=== PATIENT | female | born 1945 | race Caucasian/White ===

== ENCOUNTER 2017-02-20 09:43 | Emergency (ER) | payer MEDICAID, MEDICARE, OTHER ==
--- NOTE | 2017-02-20 11:18 | UC ---
Throat Pain/Nasal Arjun HPI - HPI Summary HPI Summary: complaint of nasal congestion and cough that strated approx 10 days ago producitve cough pressure in her face for the last 3 days intermittent headaches bilateral ear pain sore throat denies fever but has felt chills taking some ibuprofen with relief - History of Current Complaint Chief Complaint: UCRespiratory Stated Complaint: URI Time Seen by Provider: 02/20/17 11:10 Hx Obtained From: Patient - Allergies/Home Medications Allergies/Adverse Reactions: Allergies Allergy/AdvReac Type Severity Reaction Status Date / Time No Known Allergies Allergy Verified 10/07/15 13:21 PMH/Surg Hx/FS Hx/Imm Hx Previously Healthy: Yes Endocrine History Of: Reports: Thyroid Disease - HYPOTHYROID Denies: Diabetes Cardiovascular History Of: Reports: Hypertension Denies: Cardiac Disorders Respiratory History Of: Denies: COPD, Asthma GI/ History Of: Denies: Ulcer Psychological History Of: Reports: Anxiety - ON MEDICATION FOR, Depression - ON MEDICATION FOR - Surgical History Surgical History: Yes Surgery Procedure, Year, and Place: CATARACT RIGHT EYE REMOVED. TUBAL LIGATION. RIGHT EYE SURGERY FOR GLAUCOMA left eye glaucoma - Family History Known Family History: Negative: Cardiac Disease, Hypertension, Diabetes - Social History Occupation: Employed Full-time Lives: With Family Alcohol Use: None Substance Use Type: None Smoking Status (MU): Former Smoker Amount Used/How Often: 1 PPD X 46 YEARS When Did the Patient Quit Smoking/Using Tobacco: 4 YEARS Review of Systems Constitutional: Chills Skin: Negative Eyes: Negative ENT: Sore Throat, Ear Ache, Nasal Discharge Respiratory: Cough Cardiovascular: Negative Gastrointestinal: Negative Genitourinary: Negative Motor: Negative Neurovascular: Negative Musculoskeletal: Negative Neurological: Headache Psychological: Negative All Other Systems Reviewed And Are Negative: Yes Physical Exam Triage Information Reviewed: Yes Appearance: No Pain Distress, Well-Nourished Vital Signs: Initial Vital Signs Temp 98 F 02/20/17 10:02 Pulse 99 02/20/17 10:02 Resp 18 02/20/17 10:02 Pulse Ox 97 02/20/17 10:02 Vital Signs Reviewed: Yes Eyes: Positive: Conjunctiva Clear ENT: Positive: Pharyngeal erythema, Nasal congestion, Nasal drainage, TMs normal , Other: - frontal and maxillary sinus tenderness Neck: Positive: No Lymphadenopathy Respiratory: Positive: Lungs clear, Normal breath sounds, No respiratory distress, No accessory muscle use Cardiovascular: Positive: RRR, No Murmur Abdomen Description: Positive: Nontender, Soft Bowel Sounds: Positive: Present Musculoskeletal: Positive: No Edema Neurological: Positive: Alert Psychological Exam: Normal Skin Exam: Normal Throat Pain/Nasal Course/Dx - Course Course Of Treatment: exam completed. will treat for sinsuitis d/t sinus tendeness ans length of illness. followup with PCP - Differential Dx/Diagnosis Provider Diagnoses: sinusitis Discharge - Discharge Plan Condition: Stable Disposition: HOME Prescriptions: Amoxicillin/Clavulanate TAB* [Augmentin TAB 875*] 875 mg PO BID #20 tab Benzonatate CAP* [Tessalon 100 MG CAP*] 100 mg PO TID PRN #30 cap PRN Reason: Cough Patient Education Materials: Sinusitis (ED) Referrals: Emerson Perales MD [Primary Care Provider] - Additional Instructions: SINUSITIS What is Sinusitis? Sinusitis is inflammation or infection of the lining of the sinuses behind the bones in your cheeks or forehead. Sinusitis may occur following a common cold, flu, or other infection; allergies; a tooth infection that spreads to the sinuses; swimming in contaminated water; pressure changes in airplanes at high altitudes; violent sneezing or nose blowing or smoking or breathing other peoples smoke. Symptoms Might Include: Nasal Congestion Sneezing Watery eyes, eye irritation, or eye itching Headaches Pressure in the cheeks Wheezing Trouble smelling Sore throat and coughing may occur Treatment Recommendations: Take medicines as prescribed until completely gone. Drink plenty of fluids. Use saline nose spray to thin the mucous and help the sinuses drain. Use a vaporizer or humidifier. Apply warm compresses to the face or forehead several times a day for 10 to 20 minutes. Call Your Doctor or Return Here IF: Your pain increases during treatment. You develop a high temperature. You develop unusual swelling around the eyes. You have difficulty with your vision. You develop a severe headache, earache, or toothache. You develop increased fever or fever that does not respond to medication such as Tylenol?. You have difficulty breathing or catching your breath. You begin to have any other new symptoms that worry you.
== END 2017-02-20 11:31 | disposition home or self-care (01) ==
LOC: UCEAST 09:43
DX: J32.9 Chronic sinusitis, unspecified (principal); E03.9 Hypothyroidism, unspecified; I10 Essential (primary) hypertension; F41.9 Anxiety disorder, unspecified; F32.9 Major depressive disorder, single episode, unspecified; Z98.41 Cataract extraction status, right eye; Z87.891 Personal history of nicotine dependence
CPT/HCPCS: 99211; G0463

== ENCOUNTER 2017-08-12 12:04 | Emergency (ER) | payer OTHER, MEDICAID ==
[2017-08-12 12:23] VITALS: BP 145/62
[2017-08-12] MEDS ORDERED: Meclizine TAB* 12.5 MG PO ONE ×2 (12:43→13:31)
--- NOTE | 2017-08-12 12:49 | UC ---
Respiratory Complaint HPI - History of Current Complaint Chief Complaint: UCBackPain Stated Complaint: BACK PAIN Hx Obtained From: Patient - prob 1: thought she had allergies, nasal congestion , but worse over past 2 days and now felling dizzy when moves her head too fast Prob: 2: awoke with R sided back pain (T11-L4 area), worse if bends forward. has had back pain in past and this is similar. has not taken meds for this Onset/Duration: Gradual Onset Timing: Constant Severity Initially: Mild Severity Currently: Moderate Aggravating Factors: Other - dizziness: movement Back: bending forward Alleviating Factors: Nothing Associated Signs And Symptoms: Positive: Negative - Allergies/Home Medications Allergies/Adverse Reactions: Allergies Allergy/AdvReac Type Severity Reaction Status Date / Time No Known Allergies Allergy Verified 08/12/17 12:22 PMH/Surg Hx/FS Hx/Imm Hx Previously Healthy: Yes Endocrine History: Thyroid Disease, Dyslipidemia Cardiovascular History: Hypertension Psychological History: Depression - Surgical History Surgical History: Yes Surgery Procedure, Year, and Place: CATARACT RIGHT EYE REMOVED. TUBAL LIGATION. RIGHT EYE SURGERY FOR GLAUCOMA left eye glaucoma - Family History Known Family History: Negative: Cardiac Disease, Hypertension, Diabetes - Social History Occupation: Retired Lives: With Family Alcohol Use: None Substance Use Type: None Smoking Status (MU): Former Smoker Amount Used/How Often: 1 PPD X 46 YEARS When Did the Patient Quit Smoking/Using Tobacco: 4 YEARS Review of Systems Constitutional: Negative Skin: Negative ENT: Nasal Discharge Respiratory: Negative Cardiovascular: Negative Genitourinary: Negative Neurological: Other - dizzy Psychological: Negative All Other Systems Reviewed And Are Negative: Yes Physical Exam Triage Information Reviewed: Yes Appearance: Well-Appearing, No Pain Distress, Well-Nourished Vital Signs: Initial Vital Signs Temp 99.3 F 08/12/17 12:17 Pulse 110 08/12/17 12:17 Resp 18 08/12/17 12:17 BP 145/62 08/12/17 12:17 Pulse Ox 97 08/12/17 12:17 Vital Signs Reviewed: Yes Eyes: Positive: Conjunctiva Clear ENT: Positive: Pharynx normal, Nasal congestion, TMs normal. Negative: Sinus tenderness Neck: Positive: No Lymphadenopathy Respiratory Exam: Normal Respiratory: Positive: Lungs clear Cardiovascular Exam: Normal Cardiovascular: Positive: RRR, Brisk Capillary Refill Musculoskeletal: Positive: Strength Intact, ROM Intact, Other: - R low back pain with full flexion Psychological Exam: Normal Skin: Negative: rashes UC Diagnostic Evaluation - Laboratory O2 Sat by Pulse Oximetry: 97 Re-Evaluation - Re-Evaluation First Eval Change: Improved - pt states dizziness is "a lot improved" at this itme no change back pain Respiratory Course/Dx - Differential Dx/Diagnosis Differential Diagnosis/HQI/PQRI: Influenza, Lower Resp Infection, Sinusitis, Other - labyrnthitis, shingles, Provider Diagnoses: labyrinthitis. low back strain Discharge - Discharge Plan Condition: Stable Disposition: HOME Patient Education Materials: Labyrinthitis (ED), Low Back Strain (ED) Referrals: Emerson Perales MD [Medical Doctor] - Additional Instructions: drink plenty of fluids use medication as directed Report to ER if your symptoms worsen at any time
[2017-08-12] MEDS ORDERED: Ibuprofen TAB* 600 MG PO ONE (13:32)
== END 2017-08-12 13:51 | disposition home or self-care (01) ==
LOC: UCEAST 12:04
DX: Z87.891 Personal history of nicotine dependence (principal); H83.09 Labyrinthitis, unspecified ear; S39.012A Strain of muscle, fascia and tendon of lower back, initial encounter; X58.XXXD Exposure to other specified factors, subsequent encounter; Y92.9 Unspecified place or not applicable
CPT/HCPCS: 99212; A9270-GY; G0463

== ENCOUNTER 2017-09-05 16:42 | Emergency (ER) | payer OTHER, MEDICAID ==
[2017-09-05 17:07] VITALS: BP 152/61
--- NOTE | 2017-09-05 17:19 | UC ---
Respiratory Complaint HPI - HPI Summary HPI Summary: Pt presents with sinus symptoms and cough. She tells me that for the past week she has had sinus congestion/pain/pressure with post nasal drip. Over the last 3 days she developed a productive cough yielding yellow and green sputum. She has been taking an OTC cold and flu medication without relief. Denies fever, chills, SOB, chest pain, abdominal pain, N/V/D/C. - History of Current Complaint Chief Complaint: UCRespiratory Stated Complaint: URI Time Seen by Provider: 09/05/17 17:18 Hx Obtained From: Patient Onset/Duration: Gradual Onset Timing: Constant Severity Initially: Mild Severity Currently: Moderate Character: Cough: Productive - Allergies/Home Medications Allergies/Adverse Reactions: Allergies Allergy/AdvReac Type Severity Reaction Status Date / Time No Known Allergies Allergy Verified 08/12/17 12:22 PMH/Surg Hx/FS Hx/Imm Hx Endocrine History: Hypothyroidism, Dyslipidemia Cardiovascular History: Hypertension Psychological History: Anxiety, Depression - Surgical History Surgical History: Yes Surgery Procedure, Year, and Place: CATARACT RIGHT EYE REMOVED. TUBAL LIGATION. RIGHT EYE SURGERY FOR GLAUCOMA left eye glaucoma - Family History Known Family History: Negative: Cardiac Disease, Hypertension, Diabetes - Social History Occupation: Retired Lives: With Family Alcohol Use: None Substance Use Type: None Smoking Status (MU): Former Smoker Amount Used/How Often: 1 PPD X 46 YEARS When Did the Patient Quit Smoking/Using Tobacco: 4 YEARS Review of Systems Constitutional: Negative Skin: Negative Eyes: Negative ENT: Nasal Discharge, Sinus Congestion, Sinus Pain/Tenderness Respiratory: Cough Cardiovascular: Negative Gastrointestinal: Negative Musculoskeletal: Negative Neurological: Negative Psychological: Negative All Other Systems Reviewed And Are Negative: Yes Physical Exam Triage Information Reviewed: Yes Appearance: Well-Appearing, Well-Nourished Vital Signs: Initial Vital Signs Temp 98.5 F 09/05/17 17:04 Pulse 111 09/05/17 17:04 Resp 18 09/05/17 17:04 BP 152/61 09/05/17 17:04 Pulse Ox 98 09/05/17 17:04 Vital Signs Reviewed: Yes Eyes: Positive: Conjunctiva Clear. Negative: Conjunctiva Inflamed, Discharge ENT: Positive: Hearing grossly normal, Pharynx normal, Nasal congestion, Nasal drainage, TMs normal, Sinus tenderness, Uvula midline. Negative: Pharyngeal erythema, TM bulging, TM dull, TM red, Tonsillar swelling, Tonsillar exudate Neck: Positive: Supple, Nontender, No Lymphadenopathy Respiratory: Positive: Chest non-tender, No respiratory distress, No accessory muscle use, Wheezing - Throughout, Plerual rub - on expiration right lung Cardiovascular: Positive: RRR, No Murmur, Pulses Normal Neurological: Positive: Alert Psychological: Positive: Age Appropriate Behavior Skin: Negative: rashes UC Diagnostic Evaluation - Laboratory O2 Sat by Pulse Oximetry: 98 Respiratory Course/Dx - Course Course Of Treatment: CXR: 1 NO EVIDENCE FOR ACUTE FINDING. 2. HIATAL HERNIA. I discussed with the patient that a nebulizer treatment with Duoneb would likely improve her symptoms in the short term. She declined as she wanted to go home. Will rx for Augmentin for sinusitis and albuterol for bronchitis. - Differential Dx/Diagnosis Differential Diagnosis/HQI/PQRI: Asthma, Bronchitis, Exacerbation Of COPD, Influenza, Lower Resp Infection, Sinusitis Provider Diagnoses: Sinusitis. Bronchitis Discharge - Discharge Plan Condition: Stable Disposition: HOME Prescriptions: Albuterol HFA INHALER* [Ventolin HFA Inhaler*] 2 puff INH Q6H PRN #1 mdi PRN Reason: Sob/Wheezing Amoxicillin/Clavulanate TAB* [Augmentin TAB 875*] 875 mg PO BID #20 tab Patient Education Materials: Sinusitis (ED), Acute Bronchitis (ED) Referrals: Maya Beltrán MD [Primary Care Provider] - Additional Instructions: If you develop a fever, SOB, chest pain, new or worsening symptoms - please call your PCP or go to the ED. Your blood pressure was high at todays visit. Please see your primary provider within 4 weeks for recheck and re-evaluation. 1) Try OTC plain mucinex twice a day and continue taking tylenol for any fevers or discomfort.
--- NOTE | 2017-09-05 17:51 | RAD ---
INDICATION: Cough. COMPARISON: Comparison is made with prior chest x-ray study from October 12, 2007. TECHNIQUE: Dual-energy PA and lateral views of the chest were obtained. FINDINGS: The heart is within normal limits in size. There appears to be a moderate-sized hiatal hernia present. The lungs are slightly hyperinflated and clear. No pleural effusion is seen. IMPRESSION: 1 NO EVIDENCE FOR ACUTE FINDING. 2. HIATAL HERNIA.
== END 2017-09-05 18:15 | disposition home or self-care (01) ==
LOC: UCEAST 16:42
DX: J32.9 Chronic sinusitis, unspecified (principal); J40 Bronchitis, not specified as acute or chronic; K44.9 Diaphragmatic hernia without obstruction or gangrene; I10 Essential (primary) hypertension; Z87.891 Personal history of nicotine dependence
CPT/HCPCS: 71020; 99212; G0463

== ENCOUNTER 2017-11-11 08:14 | Emergency (ER) | payer OTHER, MEDICAID ==
[2017-11-11 08:42] VITALS: BP 141/60
--- NOTE | 2017-11-11 09:04 | UC ---
Respiratory Complaint HPI - HPI Summary HPI Summary: Patient presents with a past medical history of HTN, Hypercholesterolemia. She reports 2-3 day onset fatigue, malaise, generalzied body aches. She also reports chest congestion, productive cough, and discomfort in her chest only when she is coughing. She states she lives with her sister who has pneumonia. - History of Current Complaint Chief Complaint: UCRespiratory Stated Complaint: CHEST CONGESTION Time Seen by Provider: 11/11/17 08:43 Hx Obtained From: Patient ?: No Onset/Duration: Gradual Onset, Lasting Days Timing: Constant Pain Intensity: 3 Character: Cough: Productive Aggravating Factors: Deep Breaths, Recumbent Position Alleviating Factors: Upright Position, Spontaneous Resolution Associated Signs And Symptoms: Positive: Wheezing, URI, Nasal Congestion, Sinus Discomfort - Risk Factors Pulmonary Embolism Risk Factors: Negative Cardiac Risk Factors: Hypertension, Elevated Lipids Pseudomonas Risk Factors: Negative Tuberculosis Risk Factors: Negative - Allergies/Home Medications Allergies/Adverse Reactions: Allergies Allergy/AdvReac Type Severity Reaction Status Date / Time No Known Allergies Allergy Verified 11/11/17 08:42 PMH/Surg Hx/FS Hx/Imm Hx Previously Healthy: Yes Endocrine History: Dyslipidemia Cardiovascular History: Hypertension - Surgical History Surgical History: Yes Surgery Procedure, Year, and Place: CATARACT RIGHT EYE REMOVED. TUBAL LIGATION. RIGHT EYE SURGERY FOR GLAUCOMA left eye glaucoma - Family History Known Family History: Negative: Cardiac Disease, Hypertension, Diabetes - Social History Occupation: Retired Lives: Alone Alcohol Use: None Substance Use Type: None Smoking Status (MU): Former Smoker Amount Used/How Often: 1 PPD X 46 YEARS When Did the Patient Quit Smoking/Using Tobacco: 2009 Review of Systems Constitutional: Negative Skin: Negative Eyes: Negative ENT: Sinus Congestion Respiratory: Cough Cardiovascular: Negative Gastrointestinal: Negative Genitourinary: Negative Motor: Negative Neurovascular: Negative Musculoskeletal: Negative Neurological: Negative Psychological: Negative Is Patient Immunocompromised?: No All Other Systems Reviewed And Are Negative: Yes Physical Exam Triage Information Reviewed: Yes Appearance: Ill-Appearing Vital Signs: Initial Vital Signs Temp 99.1 F 11/11/17 08:31 Pulse 101 11/11/17 08:31 Resp 18 11/11/17 08:31 BP 141/60 11/11/17 08:31 Pulse Ox 98 11/11/17 08:31 Vital Signs Reviewed: Yes Eye Exam: Normal ENT: Positive: Pharynx normal, Nasal congestion, Nasal drainage, Uvula midline Neck exam: Normal Neck: Positive: 1 Respiratory: Positive: No respiratory distress, No accessory muscle use, Decreased breath sounds, Rhonchi Cardiovascular Exam: Normal Abdominal Exam: Normal Musculoskeletal Exam: Normal Neurological Exam: Normal Psychological Exam: Normal Skin Exam: Normal UC Diagnostic Evaluation - Laboratory O2 Sat by Pulse Oximetry: 98 Respiratory Course/Dx - Course Course Of Treatment: Patient presents with a past medical history of HTN, and Hyperlipidemia. Her vital signs were BP 141/60, T-99.1, P-101, R-18, O2 sat 98% on room air. I apprecaited she is mildly hypertensive and febrile consistent with acute illness. She was told to monitory her VS,and increase fluids and she has not eaten, or drnk much today. She presents with influenze illness, and bronchitis. She will be treated with Tamilfu, doxycycline, albuterol and robitussin. She was told to increase fluids, rest, and if any of her symtpoms worsen, or any new concerning symtpoms develop togo directly to the emergency department. She veralized understanding and was in agreement with the discharge plan. - Differential Dx/Diagnosis Differential Diagnosis/HQI/PQRI: Bronchitis, Other - influenza Provider Diagnoses: bronchitis. influenza Discharge - Discharge Plan Condition: Stable Disposition: HOME Patient Education Materials: Acute Bronchitis (ED), Influenza (DC) Referrals: Maya Beltrán MD [Primary Care Provider] -
== END 2017-11-11 09:25 | disposition home or self-care (01) ==
LOC: UCEAST 08:14
DX: J11.1 Influenza due to unidentified influenza virus with other respiratory manifestations (principal); Z87.891 Personal history of nicotine dependence; I10 Essential (primary) hypertension; E78.5 Hyperlipidemia, unspecified
CPT/HCPCS: 99212; G0463

== ENCOUNTER 2021-02-04 18:30 | Inpatient (IN) ==
[2021-02-04 20:19] LABS: Activated Partial Thrombo Time 24.3 seconds (26.0-38.0); INR 0.96 (0.82-1.09)
[2021-02-04 20:28] LABS: ALT 14 U/L (7-52); AST 16 U/L (13-39); Albumin/Globulin Ratio 1.3 (1-3); Alkaline Phosphatase 81 U/L (34-104); Anion Gap 9 mmol/L (2-11); Blood Urea Nitrogen 44 mg/dL (6-24); C Reactive Protein 1.89 mg/L (<8.01); CO2 Carbon Dioxide 27 mmol/L (22-32); Chloride 105 mmol/L (101-111); Creatine Kinase 68 U/L (10-223); EGFR African American 41.7 (>60); EGFR Non-African American 34.5 (>60); Globulin 3.1 g/dL (2-4); Glucose 109 mg/dL (70-100); Potassium 3.4 mmol/L (3.5-5.0); Sodium 141 mmol/L (135-145); Total Protein 7.1 g/dL (6.4-8.9)
[2021-02-04 20:30] LABS: Troponin I 0.02 ng/mL (<0.03)
[2021-02-04 20:31] LABS: Hematocrit 21 % (35-47); Hemoglobin 6.6 g/dL (12.0-16.0); Mean Corpuscular HGB Conc 31 g/dL (31-36); Mean Corpuscular Hemoglobin 20 pg (27-31); Mean Corpuscular Volume 65 fL (80-97); Mean Platelet Volume 7.9 fL (7.4-10.4); Platelet Count 382 10^3/uL (150-450); Red Blood Count 3.24 10^6 /uL (3.70-4.87); Red Cell Distribution Width 19 % (10-15); White Blood Count 11.4 10^3/uL (3.5-10.8)
[2021-02-04 20:32] LABS: CKMB ng/mL 2.5 ng/mL (0.6-6.3)
[2021-02-04 21:03] LABS: Burr Cells 2+; Microcytosis 2+
[2021-02-04 21:04] LABS: Polychromasia 2+; Spherocytes 1+
[2021-02-04 21:07] LABS: ABS Lymphocytes 1.4 10^3/ul (1.0-4.8); ABS Monocytes 0.9 10^3/ul (0-0.8); Lymphocyte % 12.7 %; Schistocytes 1+; Tear Drop Cells 1+
[2021-02-04] MEDS ORDERED: cefTRIAXone 1 gm/50 mL NS BAG 1 GM/50 ML BAG IV ONE (21:31)
[2021-02-04] MEDS ORDERED: Potassium Chlor 10 meq TAB PO ONE (22:31)
[2021-02-05 00:32] LABS: LDH 194 U/L (140-271); Total Iron Binding Capacity 522 mcg/dL (250-450); Transferrin 373 mg/dL (203-362)
[2021-02-05] MEDS ORDERED: Albuterol HFA INHALER 8 gm MDI INH PRN (00:32)
[2021-02-05 00:46] LABS: % Iron Saturation 4 % (15-55); Iron < 20 ug/dL (50-212); Unsaturated Iron Binding < 507 ug/dL
[2021-02-05 00:52] LABS: Ferritin 3.6 ng/mL (11-307)
[2021-02-05 03:26] LABS: Immature Retic Fraction 0.59; RBC Retic Count 3.42 10^6/uL (3.70-4.87); Red Blood Count 3.42 10^6 /uL (3.70-4.87)
[2021-02-05 03:40] LABS: Calcium 7.9 mg/dL (8.6-10.3); EGFR African American 46.4 (>60); EGFR Non-African American 38.3 (>60); Potassium 3.9 mmol/L (3.5-5.0)
[2021-02-05 04:04] LABS: ABS Lymphocytes 1.9 10^3/ul (1.0-4.8); ABS Monocytes 0.8 10^3/ul (0-0.8); Hematocrit 23 % (35-47); Hematocrit for Retic CNT 23 % (35-47); Hemoglobin 7.5 g/dL (12.0-16.0); Lymphocyte % 17.6 %; Mean Corpuscular HGB Conc 32 g/dL (31-36); Mean Corpuscular Hemoglobin 22 pg (27-31); Mean Corpuscular Volume 68 fL (80-97); Mean Platelet Volume 7.7 fL (7.4-10.4); Platelet Count 344 10^3/uL (150-450); Red Cell Distribution Width 21 % (10-15); White Blood Count 10.7 10^3/uL (3.5-10.8)
[2021-02-05] MEDS ORDERED: Iron Sucrose 200 MG in NS 0.9% 100 ml BAG 100 ML IVPB SCH (05:00)
[2021-02-05] MEDS: Iron Sucrose 200 MG in NS 0.9% 100 ml BAG 100 ML IVPB SCH (06:02)
[2021-02-05] MEDS ORDERED: Lisinopril/HCTZ 20/25 TAB (NF) PO SCH (09:00)
[2021-02-05] MEDS ORDERED: Polyethylene Glycol 3350 17 GM PACKET PO ONE (10:38)
[2021-02-06 06:02] LABS: Hematocrit 28 % (35-47); Hemoglobin 8.9 g/dL (12.0-16.0); Mean Corpuscular HGB Conc 32 g/dL (31-36); Mean Corpuscular Hemoglobin 23 pg (27-31); Mean Corpuscular Volume 70 fL (80-97); Mean Platelet Volume 7.6 fL (7.4-10.4); Platelet Count 322 10^3/uL (150-450); Red Blood Count 3.98 10^6 /uL (3.70-4.87); Red Cell Distribution Width 23 % (10-15); White Blood Count 9.8 10^3/uL (3.5-10.8)
[2021-02-06 06:17] LABS: Calcium 8.3 mg/dL (8.6-10.3); EGFR African American 59.4 (>60); EGFR Non-African American 49.1 (>60); Potassium 4.3 mmol/L (3.5-5.0)
[2021-02-06 08:33] LABS: Urine Appearance Clear; Urine Bilirubin Negative (Negative); Urine Blood Negative (Negative); Urine Color Straw; Urine Glucose Negative (Negative); Urine Ketones Negative (Negative); Urine Nitrite Negative (Negative); Urine Protein Negative (Negative); Urine Specific Gravity 1.011 (1.002-1.030); Urine Urobilinogen Negative (Negative)
[2021-02-06] MEDS: Iron Sucrose 200 MG in NS 0.9% 100 ml BAG 100 ML IVPB SCH (10:21)
[2021-02-06 13:24] VITALS: BP 156/71
[2021-02-06] MEDS ORDERED: COVID-19 VACCINE, AD26(JANSSEN)/PF 0.5 ML IM ONE (15:00)
== END 2021-02-06 14:30 | disposition home or self-care (01) | DRG 812 ==
LOC: ED 18:30 → MEDTELE 23:15
PROVIDERS: ADMIT Internal Medicine; ATTEND Internal Medicine